=== PATIENT | female | born 1980 | race Caucasian/White ===

== ENCOUNTER → 2016-08-14 | Outpatient (REF) | payer OTHER ==
[~2016-08-14] MED LIST: ACET50TA PO; VITAPRTA PO
== END ==
LOC: M LAB REF 16:52
PROVIDERS: ATTEND Specialist
DX: Z01.419 Encounter for gynecological examination (general) (routine) without abnormal findings (principal); Z11.51 Encounter for screening for human papillomavirus (HPV)

== ENCOUNTER 2017-02-05 08:06 | Day surgery (SDC) | payer MEDICAID, OTHER ==
[~2017-02-05] VITALS: Ht 165.1 cm; Wt 81.6 kg
[~2017-02-05 08:06] MED LIST changes: +MICR1TAB10 PO; +MULT1TAB10 PO; +VENL75CA47 PO
[2017-02-05] MEDS ORDERED: LR 1,000 ML IV ONE (08:15)
[2017-02-05] MEDS ORDERED: LIDOCAINE 1% MDV 20ML VIAL SQ PRN (08:15)
[2017-02-05] MEDS ORDERED: MIDAZOLAM INJ 2 MG/2 ML VIAL (J2250) As Ordered ONE (08:25)
[2017-02-05] MEDS ORDERED: fentaNYL 100 MCG/2 ML INJECTION (J3010) As Ordered ONE ×3 (08:25→11:34)
[2017-02-05] MEDS ORDERED: BUPIVACAINE HCL 0.25% 30 ML VIAL As Ordered ONE (08:30)
[2017-02-05 09:00] LABS: CONTROL LINE UCG INT CTR LINE PRESENT
[2017-02-05] MEDS ORDERED: SCOPOLAMINE 1.5 MG TRANSDERMAL TOP ONE (09:00)
[2017-02-05] MEDS ORDERED: OXYC1TAB23 PO (09:05)
[2017-02-05] MEDS ORDERED: dexameTHASONE 4 MG/ML 1ML VIAL (J1100) As Ordered ONE (10:54)
[2017-02-05] MEDS ORDERED: LIDOCAINE 2% INJ 100 MG/5 ML SDV (FOR ANES.) As Ordered ONE (10:54)
[2017-02-05] MEDS ORDERED: GLYCOPYRROLATE INJ 0.2 MG/ML 2 ML VIAL As Ordered ONE (10:54)
[2017-02-05] MEDS ORDERED: KETOROLAC 60 MG/2 ML VIAL (J1885) As Ordered ONE (10:54)
[2017-02-05] MEDS ORDERED: ROCURONIUM BROMIDE 50 MG/5 ML VIAL As Ordered ONE (10:54)
[2017-02-05] MEDS ORDERED: PROPOFOL 200 MG/20 ML VIAL As Ordered ONE (10:54)
[2017-02-05] MEDS ORDERED: ONDANSETRON 4MG/2ML VIAL (J2405) As Ordered ONE ×2 (10:54→11:34)
[2017-02-05] MEDS ORDERED: NEOSTIGMINE 10 MG/10 ML VIAL (J2710) As Ordered ONE (10:54)
[2017-02-05] MEDS ORDERED: PERCOCET 5MG/325MG TAB As Ordered ONE (11:34)
[2017-02-05] MEDS: fentaNYL 100 MCG/2 ML INJECTION (J3010) IV PRN ×4 (11:35→11:50)
[2017-02-05] MEDS ORDERED: LR 1,000 ML IV SCH ×2 (11:45)
[2017-02-05] MEDS ORDERED: PERCOCET 5MG/325MG TAB PO PRN ×2 (11:45)
[2017-02-05] MEDS ORDERED: ONDANSETRON 4MG/2ML VIAL (J2405) IV PRN (11:45)
[2017-02-05] MEDS ORDERED: METOCLOPRAMIDE INJ 10MG/2ML VIAL (J2765) As Ordered ONE (12:07)
[2017-02-05] MEDS ORDERED: METOCLOPRAMIDE INJ 10MG/2ML VIAL (J2765) IV ONE (12:15)
[2017-02-05 13:20] VITALS: BP 137/70
--- NOTE | 2017-02-09 05:42 | RO ---
DATE OF PROCEDURE: 02/05/2017 PREPROCEDURE DIAGNOSIS: Undesired fertility. POSTPROCEDURE DIAGNOSIS: Undesired fertility. PROCEDURE: Laparoscopic tubal ligation with Falope ring. SURGEON: Dr. Praneeth Osorio. H[employer]ICIAN: ANESTHESIA: General endotracheal. ESTIMATED BLOOD LOSS: Minimal. URINE OUTPUT: 100 mL. FINDINGS: Normal uterus, fallopian tubes and ovaries. Normal upper abdomen. OPERATIVE SUMMARY: The patient was taken to the operating room where general endotracheal anesthesia was induced. She was prepped and draped in a sterile fashion in dorsal lithotomy position. The bladder was emptied with a catheter. A sponge stick was placed in the vagina to use as a manipulator. Periumbilical incision was made with a scalpel. Veress needle was placed through this incision while tenting up on the skin of the abdomen. Intra-abdominal location of the Veress needle was assessed with use of a saline filled syringe and pneumoperitoneum was created and Veress needle removed. 5 mm trocar was placed through this incision using Visiport. An 8 mm suprapubic port was placed under direct visualization. A Falope ring was applied to the mid portion of each fallopian tube without difficulty and excellent application was noted. The pneumoperitoneum was released. All instruments were removed. Sponge, instrument and needle counts were correct.
== END 2017-02-05 13:40 | disposition home or self-care (01) ==
LOC: M SDC 08:06
PROVIDERS: ATTEND Specialist
DX: Z30.2 Encounter for sterilization (principal); M54.9 Dorsalgia, unspecified; Z91.030 Bee allergy status; Z79.3 Long term (current) use of hormonal contraceptives; Z98.84 Bariatric surgery status
CPT/HCPCS: 58671; 84703; 85014; 85018; 96374; 96375; A4649; J1100; J1885; J2250; J2405; J2710; J2765; J3010

== ENCOUNTER 2017-11-02 08:19 | Emergency (ER) | payer OTHER ==
[2017-11-02] MEDS: NS 1,000 ML IV (09:29)
[2017-11-02] MEDS: KETOROLAC 30 MG/ML VIAL (J1885) IV (09:29)
[2017-11-02 09:31] LABS: BASO % 0.6 % (0.0-1.0); EOS # 0.1 10^3/uL (0.0-0.50); EOS % 1.7 % (0.0-3.0); HEMATOCRIT 33.7 % (36.0-47.0); HEMOGLOBIN 10.5 g/dl (12.0-15.5); IMMATURE GRANULOCYTE % 0.3 % (0-3.0); LYMPH # 2.4 10^3/uL (1.5-4.5); LYMPH % 37.4 % (24.0-44.0); MEAN CORPUSCULAR HEMOGLOBIN 25.5 pg (27.0-33.0); MEAN CORPUSCULAR HGB CONC 31.2 g/dl (32.0-36.5); MONO # 0.4 10^3/uL (0.0-0.8); MONO % 6.4 % (0.0-5.0); NEUTROPHILS # 3.5 10^3/uL (1.8-7.7); NEUTROPHILS % 53.6 % (36.0-66.0); PLATELET COUNT, AUTOMATED 394 10^3/uL (150-450); RED BLOOD COUNT 4.11 10^6/uL (4.00-5.40); RED CELL DISTRIBUTION WIDTH 16.8 % (11.5-14.5); WHITE BLOOD COUNT 6.5 10^3/uL (4.0-10.0)
[2017-11-02 09:36] LABS: KETONE, URINE AUTO RFX NEGATIVE (NEGATIVE); MUCUS, URINE RFX SMALL (NEGATIVE); NITRITE, URINE AUTO RFX NEGATIVE (NEGATIVE); RBC, URINE AUTO RFX 15 /HPF (0-3); SQUAM EPITHELIAL CELL UR AURFX 19 /HPF (0-6)
[2017-11-02 09:38] LABS: LEUKOCYTE ESTERASE UR AUTO RFX 2+ (NEGATIVE); WBC, URINE AUTO RFX 17 /HPF (0-3)
[2017-11-02 09:47] LABS: ANION GAP 5 MEQ/L (8-16); BLOOD UREA NITROGEN 14 MG/DL (7-18); CALCIUM LEVEL 8.4 MG/DL (8.5-10.1); CARBON DIOXIDE LEVEL 31 MEQ/L (21-32); CHLORIDE LEVEL 107 MEQ/L (98-107); CREATININE FOR GFR 0.81 MG/DL (0.55-1.30); GLOMERULAR FILTRATION RATE > 60.0 (>60); GLUCOSE, FASTING 78 MG/DL (70-100); SODIUM LEVEL 143 MEQ/L (136-145)
[2017-11-02 10:33] LABS: CONTROL LINE HCG INT CTR LINE PRESENT; HCG, SERUM QUALITATIVE NEGATIVE (NEGATIVE)
[2017-11-02 13:27] LABS: CHLAMYDIA DNA AMPLIFICATION NEGATIVE (NEGATIVE); GC DNA AMPLIFICATION NEGATIVE (NEGATIVE)
== END 2017-11-02 11:53 | disposition home or self-care (01) ==
LOC: M ED 08:19
DX: N30.90 Cystitis, unspecified without hematuria (principal); N83.201 Unspecified ovarian cyst, right side; N83.202 Unspecified ovarian cyst, left side; Z98.84 Bariatric surgery status; Z91.030 Bee allergy status
CPT/HCPCS: J1885

== ENCOUNTER 2017-12-26 13:29 | Day surgery (SDC) | payer OTHER ==
[~2017-12-26 13:29] MED LIST changes: -ACET50TA PO; -MICR1TAB10 PO; -MULT1TAB10 PO; +PERCOCET 5MG/325MG TAB PO; -VENL75CA47 PO; -VITAPRTA PO
[2017-12-26] MEDS: ONDANSETRON 4MG/2ML VIAL (J2405) IV ×3 (14:38)
[2017-12-26] MEDS: TETANUS/DIPHTHERIA TOX ADSORB ADULT 0.5ML SYR/VIAL (90714) IM ×3 (14:39)
[2017-12-26] MEDS: MORPHINE 4 MG/ML 1ML VIAL/SYRINGE (J2270) IV ×6 (14:44→15:58)
[2017-12-26] MEDS: cefTRIAXone SOD 2 GM in D5W MINI-BAG PLUS 50 ML IV ×3 (14:52)
[2017-12-26] MEDS: NS 1,000 ML IV ×3 (15:57)
[2017-12-26] MEDS: ceFAZolin 2 GM/D5W 50 ML IV BAG (J0690 PER 500MG) As Ordered ×3 (17:15)
[2017-12-26] MEDS: BUPIVACAINE HCL 0.5% 30 ML VIAL As Ordered ×3 (17:18)
[2017-12-26] MEDS: LIDOCAINE 1% SDV INJ 30 ML VIAL As Ordered ×3 (17:18)
[2017-12-26] MEDS ORDERED: ONDANSETRON 4MG/2ML VIAL (J2405) IV ×3 (19:45)
[2017-12-26] MEDS ORDERED: PERCOCET 5MG/325MG TAB PO ×3 (19:45)
[2017-12-26] MEDS ORDERED: fentaNYL 100 MCG/2 ML INJECTION (J3010) IV ×3 (19:45)
[2017-12-26] MEDS ORDERED: oxyCODONE 5MG TAB PO ×3 (19:45)
[2017-12-26] MEDS ORDERED: LR 1,000 ML IV ×6 (19:45→20:00)
[2017-12-26] MEDS ORDERED: CEPHALEXIN 500 MG CAP PO ×3 (20:00)
[2017-12-26] MEDS: oxyCODONE 5MG TAB PO ×3 (21:16)
== END 2017-12-26 21:20 | disposition home or self-care (01) ==
LOC: M ED 13:29 → M SDC 16:28 → M PED 20:00 → M SDC 21:20
DX: S98.121A Partial traumatic amputation of right great toe, initial encounter (principal); W28.XXXA Contact with powered lawn mower, initial encounter; Y93.H2 Activity, gardening and landscaping; Y92.007 Garden or yard of unspecified non-institutional (private) residence as the place of occurrence of the external cause; Y99.8 Other external cause status; Z91.030 Bee allergy status; Z98.84 Bariatric surgery status; Z98.51 Tubal ligation status; Z72.0 Tobacco use
CPT/HCPCS: 28825

== ENCOUNTER 2018-01-21 13:05 | Day surgery (SDC) | payer OTHER ==
[2018-01-21] MEDS ORDERED: dexameTHASONE 4 MG/ML 1ML VIAL (J1100) As Ordered (16:47)
[2018-01-21] MEDS ORDERED: MIDAZOLAM INJ 2 MG/2 ML VIAL (J2250) As Ordered (16:47)
[2018-01-21] MEDS ORDERED: ONDANSETRON 4MG/2ML VIAL (J2405) As Ordered (16:47)
[2018-01-21] MEDS ORDERED: METOCLOPRAMIDE INJ 10MG/2ML VIAL (J2765) As Ordered (16:47)
[2018-01-21] MEDS ORDERED: fentaNYL 250 MCG/5 ML INJECTION (J3010) As Ordered (16:47)
[2018-01-21] MEDS ORDERED: PROPOFOL 200 MG/20 ML VIAL As Ordered ×2 (16:47→17:16)
[2018-01-21] MEDS ORDERED: GLYCOPYRROLATE INJ 0.2 MG/ML 2 ML VIAL As Ordered (16:47)
[2018-01-21] MEDS ORDERED: LIDOCAINE 2% INJ 100 MG/5 ML SDV (FOR ANES.) As Ordered (16:47)
[2018-01-21] MEDS: BUPIVACAINE HCL 0.5% 30 ML VIAL As Ordered (17:37)
[2018-01-21] MEDS ORDERED: LR 1,000 ML IV ×2 (18:00)
[2018-01-21] MEDS ORDERED: ONDANSETRON 4MG/2ML VIAL (J2405) IV (18:00)
[2018-01-21] MEDS ORDERED: MEPERIDINE INJ 25 MG/ML VIAL (J2175) IV (18:00)
[2018-01-21] MEDS ORDERED: fentaNYL 100 MCG/2 ML INJECTION (J3010) IV (18:00)
[2018-01-21] MEDS: PERCOCET 5MG/325MG TAB PO (18:10)
== END 2018-01-21 19:00 | disposition home or self-care (01) ==
LOC: M SDC 19:00
DX: T81.31XA Disruption of external operation (surgical) wound, not elsewhere classified, initial encounter (principal); X58.XXXA Exposure to other specified factors, initial encounter; Y93.89 Activity, other specified; Y92.89 Other specified places as the place of occurrence of the external cause; Y99.8 Other external cause status; Z72.0 Tobacco use; Z98.84 Bariatric surgery status; Z98.51 Tubal ligation status
CPT/HCPCS: 11042

== ENCOUNTER → 2018-06-28 | Outpatient (REF) | payer OTHER ==
[~2018-06-28] MED LIST changes: +CYCL10TA PO; +KETO10TAB PO; +MACR100C43 PO; +MAPA500T2 PO; +MICR1TAB18 PO; +MULT1TAB10 PO; +NAPR-885 PO; +OXYC1TAB23 PO; -PERCOCET 5MG/325MG TAB PO; +PYRI1TAB5 PO; +VENL75CA47 PO; +VITAPRTA PO
[2018-06-28 16:39] LABS: BASO % 0.5 % (0.0-1.0); EOS # 0.1 10^3/uL (0.0-0.50); EOS % 1.1 % (0.0-3.0); HEMATOCRIT 35.2 % (36.0-47.0); HEMOGLOBIN 10.8 g/dl (12.0-15.5); LYMPH # 2.4 10^3/uL (1.5-4.5); MEAN CORPUSCULAR HEMOGLOBIN 26.2 pg (27.0-33.0); MEAN CORPUSCULAR HGB CONC 30.7 g/dl (32.0-36.5); MEAN CORPUSCULAR VOLUME 85.2 fl (80.0-96.0); MONO # 0.6 10^3/uL (0.0-0.8); MONO % 6.9 % (0.0-5.0); NEUTROPHILS % 62.3 % (36.0-66.0); PLATELET COUNT, AUTOMATED 480 10^3/uL (150-450); RED BLOOD COUNT 4.13 10^6/uL (4.00-5.40); WHITE BLOOD COUNT 8.1 10^3/uL (4.0-10.0)
[2018-06-28 19:40] LABS: ERYTHROCYTE SEDIMENTATION RATE 13 mm/hr (0-20)
== END ==
LOC: M LABDRAW1 15:48
PROVIDERS: ATTEND Physician Assistant
DX: Z47.89 Encounter for other orthopedic aftercare (principal)

== ENCOUNTER → 2020-08-28 | Outpatient (CLI) | payer OTHER ==
[~2020-08-28] MED LIST changes: +CYCL-707 PO; -CYCL10TA PO
--- NOTE | 2020-08-28 17:16 | REP ---
INDICATION: SPONDYLOLISTHESIS L REGION. COMPARISON: Comparison MRI study is from February 15, 2014.. TECHNIQUE: Sagittal and axial T1 and T2-weighted scans are acquired in the usual fashion with and without fat saturation. Sequences include spin echo, turbo spin-echo, and STIR imaging sequences. FINDINGS: There is straightening of the normal lumbar lordosis. There are bilateral pars interarticularis defects at L4 and today's MR study demonstrates 3 mm grade 1 new L4-5 spondylolisthesis. There is advanced degenerative disc narrowing at L4-5 and axial and sagittal images at this level demonstrate diffuse moderate disc bulging. There is right-sided neural foraminal narrowing due to right foraminal disc bulging which is similar to the prior study. There is mild bulging of the left foraminal disc segments as well unchanged. Mild central canal stenosis is seen at L4-5 unchanged. Ligamentum flavum and facet hypertrophy are again seen similar to the prior study. At L5-S1, there is minimal central disc bulging. Mild facet and ligamentum flavum hypertrophy is seen. There is right-sided neural foraminal narrowing due to foraminal disc bulging at L5-S1. This is a new finding when compared with the prior study. At L3-4 there is no evidence of disc protrusion, central canal stenosis, or foraminal narrowing. The L2-3 and the L1-2 disc levels remain unremarkable. Tip of the conus medullaris is normal in position and appearance at L1. There is central disc bulging at T11-12 at the top of the imaging field of view and fairly large right anterior vertebral osteophyte is formed at T11-12. No extra vertebral abnormality is noted. 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 There is right-sided neural foraminal narrowing at L4-5 and mild central canal stenosis at L4-5. Right-sided neural foraminal narrowing is visible due to disc bulging at L5-S1 as well. <Electronically signed by Vin Ambrosio > 08/28/20 [id number]
== END ==
LOC: M RAD 15:31
PROVIDERS: ATTEND Physician Assistant
DX: M43.16 Spondylolisthesis, lumbar region (principal); M51.27 Other intervertebral disc displacement, lumbosacral region; M48.061 Spinal stenosis, lumbar region without neurogenic claudication